=== PATIENT | female | born 1965 | race Two or more races ===

== ENCOUNTER → 2018-07-18 | Outpatient (REF) ==
[~2018-07-18] MED LIST: ACIPHEX20 MG PO; BACLOFEN10 MG PO; CIPRO500 MG OR; MULTI VITAMN OR; NAPROSYN500 MG PO; PRENATA4 OR; RANITIDINE150 M1 PO; TUMS500 MG OR; ZYRTEC10 MG OR
== END | disposition home or self-care (01) | DRG 951 ==
LOC: LAB 09:04
PROVIDERS: ATTEND Family Medicine
DX: Z02.6 Encounter for examination for insurance purposes (principal)

== ENCOUNTER → 2018-07-28 | Outpatient (REF) | payer OTHER | END | disposition home or self-care (01) | DRG 556 | LOC: MRI 12:55 | PROVIDERS: ATTEND Nurse Practitioner Family | DX: M25.572 Pain in left ankle and joints of left foot (principal) ==